=== PATIENT | female | born 1985 | race Two or more races ===

== ENCOUNTER 2024-11-10 17:19 | Emergency (ER) | payer MEDICAID, SELFPAY ==
[2024-11-10 17:56] VITALS: BP 110/71; PULSE 88; RESP 16; TEMP 36.9; O2SAT 100; BMI 30.3
--- NOTE | 2024-11-10 17:57 | XR_ITS ---
Examination: Complete OB ultrasound, less than 14 weeks, transabdominal Date and time of exam: November 20, 2024 2030 hrs. Indications: Vaginal bleeding and pelvic cramping today Technique: Obstetrical ultrasound images less than 14 weeks performed via transabdominal imaging Findings: Uterus 7.6 x 3.8 x 6.3 cm Small calcification in the uterus 5 mm no intrauterine gestational sac or uterine mass Right ovary 1.7 x 2.5 cm arterial flow Left ovary 2.2 x 1.6 cm arterial flow No fluid in the cul-de-sac Endometrial stripe 12 mm Impression: No uterine mass or intrauterine gestation No adnexal mass
--- NOTE | 2024-11-10 17:57 | PD.EDRME ---
Rapid Medical Screening Exam RME Arrival date/time: 11/10/24 17:19 39-year-old female presents to the emergency department complaints of intermittent vaginal bleeding that started today. Reports she is approximately 6 weeks of gestation. I have greeted and performed a focused initial assessment of this patient. Initial appropriate labs ordered at this time. A comprehensive ED assessment and evaluation of the patient and analysis of all test and completion of medical decision making process will be conducted by additional ED provider. Chief Complaint: Vaginal Bleeding Time Seen by Provider: 11/10/24 17:34
[2024-11-10 18:19] LABS: Basophils % (Auto) 0 % (0-2.5); Eosinophils # (Auto) 0.1 Thou/mm3 (0.0-0.5); Eosinophils % (Auto) 2 % (0-10); Hematocrit 44.8 % (36.0-46.0); Hemoglobin 15.3 g/dL (12.0-16.0); Immature Granulocytes % (Auto) 0 % (0-0); Immature Granulocytes Auto 0.02 Thou/mm3 (0.00-0.00); Lymphocytes # (Auto) 2.6 Thou/mm3 (1.0-4.8); Lymphocytes % (Auto) 35 % (10-50); Mean Corpuscular HGB Conc 34.2 g/dl (31.0-37.0); Mean Corpuscular Hemoglobin 30.2 pg (25.0-35.0); Mean Corpuscular Volume 88 fL (80-100); Monocytes # (Auto) 0.6 Thou/mm3 (0.0-0.8); Monocytes % (Auto) 8 % (0-12); Neutrophils % (Auto) 54 % (37-80); Nucleated Red Blood Cell % 0 /100 WBC (0); Platelet Count 263 Thou/mm3 (140-440); RDW Standard Deviation 38.6 fL (36.4-46.3); Red Blood Count 5.07 Miln/mm3 (4.00-5.20); White Blood Count 7.4 Thou/mm3 (3.6-11.0)
[2024-11-10 18:39] LABS: Alanine Aminotransferase 39 U/L (10-49); Albumin, Serum 4.4 gm/dL (3.5-5.0); Albumin/Globulin Ratio 1.8 (1.2-2.2); Alkaline Phosphatase 113 U/L (46-116); Anion Gap 7 (7-16); Aspartate Amino Transferase 26 U/L (0-34); BUN/Creatinine Ratio 17 Ratio (12-20); Bilirubin,Total 0.3 mg/dL (0.3-1.2); Blood Urea Nitrogen 12 mg/dL (9-23); Calcium 9.4 mg/dL (8.3-10.6); Calcium (Corrected) 9.4 mg/dL (8.5-10.1); Carbon Dioxide 25.4 mMol/L (20.0-31.0); Chloride 107 mMol/L (98-107); Creatinine (Component) 0.7 mg/dL (0.6-1.3); Estimated Creatinine Clearance 103.5 mL/min (>60); Globulin 2.5 gm/dL (2.3-3.5); Glucose 96 mg/dL (74-106); Osmolality,Calculated 277 (275-295); Potassium 4.1 mMol/L (3.4-5.1); Sodium 139 mMol/L (136-145); Total Protein 6.9 gm/dL (5.7-8.2); eGFR > 60 See Note
[2024-11-10 18:52] LABS: Beta HCG,Quantitative 1953 mIU/mL (<5.0)
[2024-11-10 19:11] LABS: Collection Type, Urine Clean Catch
[2024-11-10 19:43] LABS: Bilirubin,Urine Negative (Negative); Blood,Urine 2+ (Negative); Clarity,Urine Clear (Clear/Hazy); Color,Urine Lt-Yellow (Lt Yel-Yel); Glucose, Urine Negative (Negative); Ketones,Urine Negative (Negative); Leukocyte Esterase,Urine Positive (Negative); Nitrite,Urine Negative (Negative); Protein,Urine Negative (Neg - Trace); RBC,Urine 3 /hpf (0-3); Specific Gravity,Urine 1.021 (1.001-1.035); Squamous Epithelial Cell,Urine 5 /hpf (0-5); Urobilinogen,Urine Negative mg/dL (0.0-1.0); WBC,Urine 4 /hpf (0-5)
[2024-11-10 21:05] VITALS: BP 120/75; PULSE 107; RESP 16; TEMP 37.1; O2SAT 99
--- NOTE | 2024-11-10 21:20 | PD.EDVAGBL ---
ED OB Contraction Preg RMI/HPI General Chief complaint: Vaginal Bleeding Stated complaint: BLEEDING (2 MONTHS ) Time Seen by Provider: 11/10/24 17:34 Arrival date/time: 11/10/24 17:19 RME / HPI RME / HPI Narrative: 39-year-old female patient 6 para 5, about 6 weeks , came in for evaluation regarding vaginal spotting. Onset of symptoms since earlier today as Vaginal spotting, severity mild. Patient denies any dizziness denies any dysuria denies any pelvic pain denies any abdominal pain denies any other complaints no medications taken prior to arrival. Related Data Allergies Allergy/AdvReac Type Severity Reaction Status Date / Time No Known Allergies Allergy Verified 11/10/24 17:24 Review of Systems Review of Systems Narrative Review of Systems: Review of system reviewed and within normal limits except mentioned in HPI ED Exam Narrative Physical exam: VITAL SIGNS: Reviewed. GENERAL APPEARANCE: Alert and interactive, follows commands, no acute distress, HEAD AND FACE: Non-traumatic. ENT: PERRL, pink conjunctivitis, eyelid no trauma, Mucous membrane moist. NECK: Supple, nontender, no nuchal rigidity. CHEST: No tenderness, no crepitus, no paradoxical movement, no retractions. LUNGS: Clear, well ventilated, symmetric, no rales, no wheezing, no ronchi, no stridor, good breath sounds bilaterally. HEART: Regular rate, regular rhythm, no murmur, no gallops. ABDOMEN: Soft, positive bowel sounds, nondistended, no guarding, nontender, no rebound, no masses, RECTAL: Deferred. GENITAL: Deferred. NEUROLOGICAL: Gross motor function intact sensory function intact, Appropriate for age. MUSCULOSKELETAL: low back nontender, full range of motion. EXTREMITIES: Nontender, full range of motion. SKIN: Color pink, dry, no rash, no lacerations, no abrasions, no contusions. LYMPHATICS: Deferred. Course Quality Measures none Orders Category Date Time Status US OB <= 14 weeks fetus Stat Exams 11/10/24 17:57 Completed ABO/RH Type Stat Lab 11/10/24 18:12 Completed Beta HCG,Quantitative Stat Lab 11/10/24 18:12 Completed CBC Stat Lab 11/10/24 18:12 Completed Comprehensive Metabolic Panel Stat Lab 11/10/24 18:12 Completed Urinalysis Stat Lab 11/10/24 18:50 Completed Urine Culture Stat Lab 11/10/24 18:50 Received Vital Signs Vital signs: Vital Signs Temperature 98.4 F 11/10/24 17:56 Pulse Rate 88 11/10/24 17:56 Respiratory Rate 16 11/10/24 17:56 Blood Pressure 110/71 11/10/24 17:56 Pulse Oximetry (%) 100 11/10/24 17:56 Oxygen Delivery Method Room Air 11/10/24 17:56 Vaginal Bleeding [facility] Narrative [facility] Narrative: 39-year-old female patient 6 para 5, about 6 weeks , came in for evaluation regarding vaginal spotting. Onset of symptoms since earlier today as Vaginal spotting, severity mild. Patient denies any dizziness denies any dysuria denies any pelvic pain denies any abdominal pain denies any other complaints no medications taken prior to arrival. Laboratory workup came back with no anemia on CBC, hCG today was noted to be 1953 urinalysis no UTI ultrasound of the pelvis/OB showed No uterine mass or intrauterine gestation No adnexal mass Results discussed with the patient. Patient was advised to follow-up closely with PCP and/or return to emergency room in total treated for repeat hCG. Patient appears nontoxic and hemodynamically stable. Patient discharged home and instructed to follow-up with primary care provider in 24 to 48 hours. Instructed to return to the emergency department immediately if worsening of symptoms Patient data External records reviewed:: None Clinical information provided by:: none Social determinants that could affect healthcare access:: none Patient has the following chronic illnesses:: None How is presenting disease/condition affected by chronic disease/condition?: no chronic disease Evaluation data The following diagnostics were reviewed and interpreted by me:: lab results and radiology exam(s) Lab and/or radiology exams considered but not ordered:: None Interpretation Summary: See result in MDM Medications / Prescriptions Medications or Prescriptions considered but not ordered:: None Medication administrations:: None Consultations Consultation(s) initiated? (list below): No Diagnosis Vaginal Bleeding Differential Diagnosis: missed and threatened Most likely diagnosis given after review of the tests above:: Bleeding in early Admission Indicated Admission indicated?: not indicated Explain why admission is indicated or not indicated:: Stable Admission Request Was there a request for admission?: No Disposition Plan Disposition Plan: Discharge Discharge Attestation Discharge Attestation: The patient was given an opportunity to ask questions and understood the discharge instructions. Discharge instructions specifically effects, indications for sooner follow up or return to the emergency department, and the expected course of current diagnosis. Patient condition: Stable Discharge Plan Plan Patient Disposition: HOME (Self Care) Disposition Comment: Stable Prescriptions/Referrals Referrals: No Primary/Family,Physician [Primary Care Provider] - In 1 week Problem List Clinical Impression: Vaginal bleeding affecting early Patient/Caregiver Discharge Instructions Education Materials: Bleeding During Early Additional Instructions: Thank you for the opportunity for serving you today. You are stable for discharged . You are advised to: Follow-up with your PCP in 1 to 2 days Return to ED for worsening of symptoms Increase oral fluids Pelvic rest no sex or until cleared by [employer] for 1 week Return to emergency room in 3 days for repeat hCG. Print Language: [place] Stand Alone Forms: [facility] Award Info., Patient Portal Info Letter YAZ/THEODORA Supervising Physician YAZ/THEODORA Supervising Physician: MD Umberto
== END 2024-11-10 21:42 | disposition home or self-care (01) ==
PROVIDERS: Nurse Practitioner Primary Care; Emergency Provider Emergency Medicine
DX: O20.9 Hemorrhage in early pregnancy, unspecified (principal); Z3A.01 Less than 8 weeks gestation of pregnancy
CPT/HCPCS: 36415; 76801; 80053; 81001; 84702; 85025; 86900; 86901; 87086; 99284